=== PATIENT | male | born 1960 | race Caucasian/White ===

== ENCOUNTER 2019-09-12 07:35 | Emergency (ER) | payer BC ==
--- NOTE | 2019-09-12 07:46 | ED ---
GI/ HPI - HPI Summary HPI Summary: 58-year-old male with significant past medical history of kidney stones presents to emergency department today complaining of left flank pain which began on Saturday09/08/2019. Patient states he began having symptoms and went to [facility] in [facility] where he was diagnosed with a 4.5 cm kidney stone in the left proximal ureter which was nonobstructing. There is mild hydroureter and hydronephrosis noted. They treated him with tamsulosin and oxycodone as an outpatient with hopes the stone would pass. He presents to the emergency department today after running out of his medication and with increased pain which he describes as 10 out of 10 left flank pain which does not radiate. He endorses nausea but denies pain with urination, fever, chest pain, abdominal pain, rash. - History of Current Complaint Chief Complaint: EDFlankPain Time Seen by Provider: 09/12/19 07:46 Stated Complaint: KIDNEY STONE PER PT Hx Obtained From: Patient Onset/Duration: Started Days Ago, Started Weeks Ago Timing: Constant Severity: Severe Current Severity: Severe Pain Intensity: 8 Pain Characteristics: Sharp, Colicy, Cramping Associated Signs and Symptoms: Positive: Back Pain, Nausea. Negative: Vomiting Aggravating Factor(s): Movement Alleviating Factor(s): Position - Allergy/Home Medications Allergies/Adverse Reactions: Allergies Allergy/AdvReac Type Severity Reaction Status Date / Time No Known Allergies Allergy Verified 09/12/19 07:40 Home Medications: Home Medications Aspirin 81 mg PO DAILY 09/12/19 [History Confirmed 09/12/19] Atorvastatin Calcium [Lipitor] 40 mg PO DAILY 09/12/19 [History Confirmed ] Clopidogrel Bisulfate [Plavix] 75 mg PO DAILY 09/12/19 [History Confirmed ] amLODIPine TAB* [Norvasc 5 mg TAB*] 5 mg PO DAILY 09/12/19 [History Confirmed ] PMH/Surg Hx/FS Hx/Imm Hx Infectious Disease History: No Infectious Disease History: Denies: Traveled Outside the [place] in Last 30 Days Review of Systems Constitutional: Negative Eyes: Negative ENT: Negative Cardiovascular: Negative Respiratory: Negative Positive: Nausea. Negative: Abdominal Pain, Vomiting, Diarrhea Positive: flank pain. Negative: dysuria Musculoskeletal: Negative Skin: Negative Neurological: Negative Psychological: Normal All Other Systems Reviewed And Are Negative: Yes Physical Exam Triage Information Reviewed: Yes Vital Signs On Initial Exam: Initial Vitals Temp Pulse Resp BP Pulse Ox 97.6 F 72 18 170/94 94 09/12/19 07:37 09/12/19 07:37 09/12/19 07:37 09/12/19 07:37 09/12/19 07:37 Vital Signs Reviewed: Yes Appearance: Positive: Well-Appearing, Well-Nourished, Pain Distress Skin: Positive: Warm, Skin Color Reflects Adequate Perfusion Eyes: Positive: EOMI, NATE ENT: Positive: Hearing grossly normal Respiratory/Lung Sounds: Positive: Clear to Auscultation, Breath Sounds Present Cardiovascular: Positive: RRR, S1, S2 Abdomen Description: Positive: Nontender, Soft, CVA Tenderness (L). Negative: CVA Tenderness (R), Distended, Guarding Bowel Sounds: Positive: Present Musculoskeletal: Positive: Strength/ROM Intact Neurological: Positive: Sensory/Motor Intact, Alert, Oriented to Person Place, Time, Speech Normal Psychiatric: Positive: Normal AVPU Assessment: Alert Procedures - Sedation Patient Received Moderate/Deep Sedation with Procedure: No Diagnostics - Vital Signs Vital Signs Temp Pulse Resp BP Pulse Ox 09/12/19 07:37 97.6 F 72 18 170/94 94 - Laboratory Result Diagrams: 09/12/19 08:00 09/12/19 08:00 Lab Statement: Any lab studies that have been ordered have been reviewed, and results considered in the medical decision making process. GIGU Course/Dx - Course Course Of Treatment: Patient was evaluated in the emergency department today for known 4.5 cm left kidney stone in the proximal ureter which was diagnosed on 09/09/2019. The patient was seen and examined. His vital signs are stable and he is afebrile. He was given Toradol, morphine, Zofran for pain management as well as 1 L of lactated Ringer's. An ultrasound of the left kidney was obtained to investigate location of the stone. Labs show no evidence of leukocytosis or anemia. There are no acute electrolyte abnormalities noted. Ultrasound imaging of the left kidney and urinary bladder shows mild left hydronephrosis. No shadowing calculus is identified in the left kidney. There are bilateral ureteral jets detected, suggesting there is no obstruction of the ureters. Patient's symptoms were significantly reduced after pain medication and IV fluid. There appears to be no obstructing stone requiring immediate intervention. he is to be given outpatient pain medication and tamsulosin with hopes that he will pass the stone. He'll be told to follow-up with his urologist at home in [facility] for further evaluation and management of his symptoms. - Diagnoses Differential Diagnoses - Male: Cholelithiasis, Cystitis, Renal Calculi Provider Diagnoses: Left renal stone Discharge ED - Sign-Out/Discharge Documenting (check all that apply): Patient Departure - Discharge Plan Condition: Stable Disposition: HOME Prescriptions: Ibuprofen TAB* [Motrin TAB* 800 MG] 800 mg PO Q8H PRN #12 tab PRN Reason: Pain - Mild Ondansetron ODT TAB* [Zofran 4 MG Odt TAB*] 4 mg PO Q6H PRN #12 tab.odt PRN Reason: Nausea Tamsulosin CAP* [Flomax CAP*] 0.4 mg PO DAILY #5 cap Patient Education Materials: Kidney Stones (ED) Referrals: [facility], [Primary Care Provider] - Additional Instructions: You were seen in the emergency department today for a left-sided kidney stone. An ultrasound was done which showed no evidence of an obstructing stone in the left kidney. There is no evidence that this kidney stone requires immediate medical intervention. I prescribed ibuprofen which may be taken for pain as well as tamsulosin with hopes that the stone will pass. I have also given you zofran which you may take for nausea. Please follow-up with your urologist for further evaluation and management of your symptoms. Please return to the emergency department immediately if you develop any new or worsening symptoms. - Billing Disposition and Condition Condition: STABLE Disposition: Home
[2019-09-12] MEDS ORDERED: Morphine 4 MG/ML VIAL (1 ml) 4 MG/ML VIAL IV ONE (07:48)
[2019-09-12] MEDS ORDERED: Ketorolac INJ* 30 MG/ML 1 ML VIAL IV ONE (07:48)
[2019-09-12] MEDS ORDERED: Ondansetron INJ* 2 MG/ML VIAL IV ONE (07:48)
[2019-09-12] MEDS ORDERED: Lactated Ringers 1000 ML Bag* 1,000 ML IV SCH (08:00)
[2019-09-12 08:17] LABS: ABS Lymphocytes 0.6 10^3/ul (1.0-4.8); ABS Monocytes 0.7 10^3/ul (0-0.8); ABS Neutrophils 9.2 10^3/ul (1.5-7.7); Eosinophil % 0.5 %; Hematocrit 43 % (42-52); Hemoglobin 14.7 g/dL (14.0-18.0); Lymphocyte % 5.9 %; Mean Corpuscular HGB Conc 34 g/dL (31-36); Mean Corpuscular Hemoglobin 31 pg (27-31); Mean Corpuscular Volume 90 fL (80-94); Mean Platelet Volume 8.7 fL (7.4-10.4); Platelet Count 132 10^3/uL (150-450); Red Blood Count 4.81 10^6 /uL (4.18-5.48); Red Cell Distribution Width 13 % (10-15); White Blood Count 10.7 10^3/uL (3.5-10.8)
[2019-09-12 08:28] LABS: Albumin 4.5 g/dL (3.2-5.2); Albumin/Globulin Ratio 1.6 (1-3); BUN/Creatinine Ratio 10.7 (8-20); Calcium 9.4 mg/dL (8.6-10.3); EGFR African American 57.8 (>60); EGFR Non-African American 47.7 (>60); Globulin 2.8 g/dL (2-4); Potassium 4.3 mmol/L (3.5-5.0); Total Bilirubin 0.8 mg/dL (0.2-1.0); Total Protein 7.3 g/dL (6.4-8.9)
[2019-09-12 09:37] LABS: Urine Appearance Clear; Urine Bilirubin Negative (Negative); Urine Blood 2+ (Negative); Urine Color Yellow; Urine Glucose Negative (Negative); Urine Ketones Negative (Negative); Urine Nitrite Negative (Negative); Urine Protein Negative (Negative); Urine Specific Gravity 1.008 (1.010-1.030); Urine Urobilinogen Negative (Negative)
[2019-09-12 09:51] LABS: Urine Bacteria Absent (Absent); Urine Red Blood Cell 1+(3-5/hpf) (Absent); Urine Squamous Epithelial Cell Present (Absent); Urine White Blood Cell Trace(0-5/hpf) (Absent)
[2019-09-12 10:34] VITALS: BP 150/87
== END 2019-09-12 10:34 | disposition home or self-care (01) ==
LOC: ED 07:35
DX: N13.2 Hydronephrosis with renal and ureteral calculous obstruction (principal); Z79.01 Long term (current) use of anticoagulants; Z79.82 Long term (current) use of aspirin; Z79.899 Other long term (current) drug therapy
CPT/HCPCS: 36415; 76775; 80053; 81003; 81015; 85025; 87086; 96361; 96374; 96375; 99283; J1885; J2270; J2405